=== PATIENT | male | born 1950 | race Caucasian/White ===

== ENCOUNTER → 2021-02-10 | Outpatient (CLI) | payer SELFPAY | LOC: M LABSMTC 11:56 | PROVIDERS: ATTEND Anesthesiology | DX: Z01.812 Encounter for preprocedural laboratory examination (principal); Z20.822 Contact with and (suspected) exposure to COVID-19 ==

== ENCOUNTER → 2021-02-14 | Outpatient (CLI) | payer OTHER | LOC: M LABSMTC 09:00 | PROVIDERS: ATTEND Anesthesiology | DX: Z01.812 Encounter for preprocedural laboratory examination (principal); Z20.822 Contact with and (suspected) exposure to COVID-19 ==

== ENCOUNTER 2021-02-15 08:57 | Day surgery (SDC) | payer OTHER ==
[~2021-02-15] VITALS: Ht 177.8 cm; Wt 80.7 kg
[~2021-02-15 08:57] MED LIST: NS 1,000 ML IV ONE
[2021-02-15] MEDS ORDERED: LIDOCAINE 2% 100MG/5ML SDV (FOR ANES.) As Ordered ONE (10:38)
[2021-02-15] MEDS ORDERED: propofoL 200 MG/20 ML VIAL As Ordered ONE ×3 (10:38→10:58)
--- NOTE | 2021-02-15 11:12 | ROOR ---
Patient Name: Saurabh Fung Procedure Date: 02/15/2021 10:21 AM Date of : 1950 Age: 70 Room: [facility] Gender: Male Note Status: Finalized Procedure: Upper GI endoscopy Indications: Gastro-esophageal reflux disease, Follow-up of Bains's esophagus Providers: Patrice Thrasher MD Referring MD: Ana [facility] Ana TRIPATHI [facility], Admin. Requesting Provider: Medicines: Monitored Anesthesia Care Complications: No immediate complications. Procedure: Pre-Anesthesia Assessment: - Prior to the procedure, a History and Physical was performed, and patient medications and allergies were reviewed. The patient is competent. The risks and benefits of the procedure and the sedation options and risks were discussed with the patient. All questions were answered and informed consent was obtained. Patient identification and proposed procedure were verified by the physician, the nurse and the anesthesiologist in the endoscopy suite. Mental Status Examination: alert and oriented. Airway Examination: normal oropharyngeal airway and neck mobility. Respiratory Examination: clear to auscultation. CV Examination: normal. Prophylactic Antibiotics: The patient does not require prophylactic antibiotics. Prior Anticoagulants: The patient has taken no previous anticoagulant or antiplatelet agents. ASA Grade Assessment: II - A patient with mild systemic disease. After reviewing the risks and benefits, the patient was deemed in satisfactory condition to undergo the procedure. The anesthesia plan was to use monitored anesthesia care (MAC). Immediately prior to administration of medications, the patient was re-assessed for adequacy to receive sedatives. The heart rate, respiratory rate, oxygen saturations, blood pressure, adequacy of pulmonary ventilation, and response to care were monitored throughout the procedure. The physical status of the patient was re-assessed after the procedure. The Endoscope was introduced through the mouth, and advanced to the second part of duodenum. The upper GI endoscopy was accomplished without difficulty. The patient tolerated the procedure well. Findings: There were esophageal mucosal changes consistent with short-segment Bains's esophagus present in the upper third of the esophagus. The maximum longitudinal extent of these mucosal changes was 2 cm in length. This was biopsied with a cold forceps for histology. There were esophageal mucosal changes consistent with short-segment Bains's esophagus present in the lower third of the esophagus. The maximum longitudinal extent of these mucosal changes was 2 cm in length. This was biopsied with a cold forceps for histology. There is no endoscopic evidence of esophagitis or hiatal hernia in the lower third of the esophagus. The entire examined stomach was normal. The first portion of the duodenum and second portion of the duodenum were normal. Impression: - Esophageal mucosal changes consistent with short-segment Bains's esophagus. Biopsied. - Esophageal mucosal changes consistent with short-segment Bains's esophagus. Biopsied. - Normal stomach. - Normal first portion of the duodenum and second portion of the duodenum. Recommendation: - Await pathology results. - Discharge patient to home (ambulatory). - Use Protonix (pantoprazole) 40 mg PO daily indefinitely. - Await pathology results. - Repeat upper endoscopy in 2 years for surveillance of Bains's esophagus. Procedure Code(s): --- Professional --- 56331, Esophagogastroduodenoscopy, flexible, transoral; with biopsy, single or multiple Diagnosis Code(s): --- Professional --- K22.70, Bains's esophagus without dysplasia K21.9, Gastro-esophageal reflux disease without esophagitis CPT copyright 2019 [employer]. All rights reserved. The codes documented in this report are preliminary and upon assistant professor of biochemistry review may be revised to meet current compliance requirements. Patrice Thrasher MD Patrice Thrasher MD 02/15/2021 11:12:22 AM Electronically signed by Patrice Thrasher MD Number of Addenda: 0 Note Initiated On: 02/15/2021 10:21 AM Estimated Blood Loss: Estimated blood loss was minimal.
--- NOTE | 2021-02-15 11:15 | ROOR ---
Patient Name: Saurabh Fung Procedure Date: 02/15/2021 10:20 AM Date of : 1950 Age: 70 Room: [facility] Gender: Male Note Status: Finalized Procedure: Colonoscopy Indications: High risk colon cancer surveillance: Personal history of colonic polyps Providers: Patrice Thrasher MD Referring MD: [facility] [place], Admin. Requesting Provider: Medicines: Monitored Anesthesia Care Complications: No immediate complications. Procedure: Pre-Anesthesia Assessment: - Prior to the procedure, a History and Physical was performed, and patient medications and allergies were reviewed. The patient is competent. The risks and benefits of the procedure and the sedation options and risks were discussed with the patient. All questions were answered and informed consent was obtained. Patient identification and proposed procedure were verified by the physician, the nurse and the anesthesiologist in the procedure room. Mental Status Examination: alert and oriented. Airway Examination: normal oropharyngeal airway and neck mobility. Respiratory Examination: clear to auscultation. CV Examination: normal. Prophylactic Antibiotics: The patient does not require prophylactic antibiotics. Prior Anticoagulants: The patient has taken no previous anticoagulant or antiplatelet agents. ASA Grade Assessment: II - A patient with mild systemic disease. After reviewing the risks and benefits, the patient was deemed in satisfactory condition to undergo the procedure. The anesthesia plan was to use monitored anesthesia care (MAC). Immediately prior to administration of medications, the patient was re-assessed for adequacy to receive sedatives. The heart rate, respiratory rate, oxygen saturations, blood pressure, adequacy of pulmonary ventilation, and response to care were monitored throughout the procedure. The physical status of the patient was re-assessed after the procedure. The Colonoscope was introduced through the anus and advanced to the cecum, identified by appendiceal orifice and ileocecal valve. The colonoscopy was performed without difficulty. The patient tolerated the procedure well. The quality of the bowel preparation was adequate to identify polyps. Findings: The perianal and digital rectal examinations were normal. Multiple medium-mouthed diverticula were found in the sigmoid colon, descending colon, transverse colon and ascending colon. The entire examined colon appeared normal on direct and retroflexion views. A single small localized angioectasia without bleeding was found in the cecum. Impression: - Diverticulosis in the sigmoid colon, in the descending colon, in the transverse colon and in the ascending colon. - The entire examined colon is normal on direct and retroflexion views. - No specimens collected. Recommendation: - Discharge patient to home (ambulatory). - High fiber diet indefinitely. Procedure Code(s): --- Professional --- 93308, Colonoscopy, flexible; diagnostic, including collection of specimen(s) by brushing or washing, when performed (separate procedure) Diagnosis Code(s): --- Professional --- Z86.010, Personal history of colonic polyps K57.30, Diverticulosis of large intestine without perforation or abscess without bleeding CPT copyright 2019 [employer]. All rights reserved. The codes documented in this report are preliminary and upon coffee urn attendant review may be revised to meet current compliance requirements. Patrice Thrasher MD Patrice Thrasher MD 02/15/2021 11:15:34 AM Electronically signed by Patrice Thrasher MD Number of Addenda: 0 Note Initiated On: 02/15/2021 10:20 AM Estimated Blood Loss: Estimated blood loss: none.
[2021-02-15 11:24] VITALS: BP 124/71
== END 2021-02-15 11:33 | disposition home or self-care (01) ==
LOC: M OPP 08:57
PROVIDERS: ATTEND Surgery
DX: Z12.11 Encounter for screening for malignant neoplasm of colon (principal); Z86.010 Personal history of colon polyps; Z80.0 Family history of malignant neoplasm of digestive organs; K22.70 Barrett's esophagus without dysplasia; K21.9 Gastro-esophageal reflux disease without esophagitis; Z87.891 Personal history of nicotine dependence
CPT/HCPCS: 43239; 88305; G0105